=== PATIENT | female | born 1975 ===

== ENCOUNTER 2025-02-05 11:23 | Outpatient (AMB) | payer MEDICARE, SELFPAY ==
--- NOTE | 2025-02-05 11:40 | MHC.PC.OV ---
Vital Signs 02/05/25 12:07 Height 5 ft 4 in Weight 124 lb BMI 21.3 BP 100/70 Blood Pressure Location Lt brachial Position Sitting Pulse 81 Pulse Source Pulse Oximeter Temp 97.8 F Temp Source Temporal Artery Scan Pulse Oximetry (%) 96 Oxygen Delivery Method Room Air Intake Visit Reasons: est care Intake Note: Rosy presents in the office today to establish care. Allergies milk Allergy (Mild, Verified 02/05/25 12:01) Mucus bee pollen (bees) Allergy (Verified 02/05/25 12:01) Swelling corn Allergy (Verified 02/05/25 12:01) Hives house dust Allergy (Verified 02/05/25 12:01) Hives mold Allergy (Verified 02/05/25 12:01) Hives potato Allergy (Verified 02/05/25 12:01) Hives ragweed pollen Allergy (Verified 02/05/25 12:01) Hives Tobacco use date assessed: 02/05/25 Dental Screening Dental Screen Date: 02/05/25 Did you have a dental visit in the last 12 months?: No Did you have a dental problem in the last 6 months where you did not have access to dental care?: No Was dental information given to patient?: Patient declined HPI HPI Comments History of Present Illness Details This is a 49-year-old female with a past medical history of cognitive impairment and 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 She is due for a physical. Records transfer pending. She is accompanied by her mother who provides the medical history today. She previously was followed by Dr. Tristan and then Dr. sandoval from [facility]. 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 There are additional family members with the same chromosomal abnormality which led to the testing. She has the paperwork at home, and she will obtain a copy for us. She has suffered from seizures since childhood. She is on Depakote. Last seizure was 6 years ago. They do not have a neurologist currently. They report Depakote level was checked at urgent care recently when she need a refill on the medication. She suffers from low muscle tone and chronic neck pain related to cervical spinal a cathie. She sees a specialized chiropractor in [place], Dr. Greenbegr, who does computerized adjustments. She wears knee braces. 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 They have assistive walking devices including a walker and wheelchair. They also have safe guards for bathing including a bench and hand rails. She has chronic venous insufficiency. She is followed by Dr. Waldron at [facility]. She uses compression stockings. Her last appointment was within the past year. She goes to [facility]. She sees an eye doctor regularly. She does not have a mixed animal veterinarian, and she is referred for exam today. They decline mammogram, colonoscopy and Cologuard. Her mother does not want to put her through this type of testing given her medical history and excitability. She reports that her ears are frequently itchy. Mother reports tetanus immunization is up-to-date. Declines other vaccinations. ROS: Constitutional: No unexplained weight loss, fever, chills, fatigue or night sweats. Eyes: No vision changes,double vision, eye pain, eye redness, eye discharge. Wears glasses. ENT: No hearing loss, sneezing, congestion, runny nose or sore throat. Respiratory: No shortness of breath, cough or sputum production. Cardiovascular: No chest pain, chest pressure or chest discomfort. No palpitations or pedal edema. Gastrointestinal: No anorexia, nausea, vomiting or diarrhea. No abdominal pain or blood in stool. Genitourinary: No dysuria, hematuria, urinary frequency. Neurologic: No headache, dizziness, syncope Musculoskeletal: See HPI Hematologic/Lymphatics: No bleeding or bruising. No painful lymph nodes. Skin: No rash Endocrine: No cold or heat intolerance. No polyuria or polydipsia. Psychiatric: No depression or anxiety. Physical exam: Constitutional: Alert, in no distress. Head: Normocephalic. Eyes: Pupils are equal, round and reactive to light. Extraocular muscles intact. Ear, Nose and Throat: Canals occluded by brown cerumen bilaterally.. Normal nasal mucosa. No nasal discharge. No oral lesions. Neck: Supple, Full range of motion. No lymphadenopathy. No palpable thyroid masses. Respiratory: Clear to auscultation. Cardiovascular: S1 S2 regular. No murmurs. Gastrointestinal: Abdomen soft, non-tender, non-distended. Normal bowel sounds. No palpable masses. Genitourinary: No costovertebral angle tenderness. Neurologic: Moves all extremities spontaneously. Sensation intact bilaterally. Skin: No rashes Musculoskeletal: She is wearing knee braces. Extremities: Warm and well perfused. No clubbing or cyanosis. No erythema. 2+ bilateral lower extremity edema. Psychiatric: Cooperative [facility] Medical History (Updated 02/06/25 @ 12:41 by ZAHEER Stark) Bilateral impacted cerumen Routine physical examination Chronic neck pain Low muscle tone Cognitive impairment Venous insufficiency Chromosomal abnormality syndrome Screening for cardiovascular condition Epilepsy Social History (Updated 02/05/25 @ 12:07 by Raegan Powell MA) Housing: House Alcohol intake: never Patient Tobacco Use Status: Never used Tobacco e-Cigarette/Vaping Use: Never Used Second Hand Smoke Exposure: No service: No Current occupational status: disabled Current occupational exposures/hazards: No Cognitive needs: No Hearing needs: No Vision needs: No Questionnaire PHQ-9 Over the last 2 weeks, how often have you been bothered by any of the following problems? 1. Little interest or pleasure in doing things: not at all 2. Feeling down, depressed, or hopeless: not at all 3. Trouble falling or staying asleep, or sleeping too much: not at all 4. Feeling tired or having little energy: several days 5. Poor appetite or overeating: not at all 6. Feeling bad about yourself - or that you are a failure or have let yourself or your family down: not at all 7. Trouble concentrating on things, such as reading the newspaper or watching television: not at all 8. Moving or speaking so slowly that other people could have noticed. Or the opposite - being so fidgety or restless that you have been moving around a lot more than usual: not at all 9. Thoughts that you would be better off or of hurting yourself in some way: not at all Total score: 1 Depression Screening Interpretation: Negative Depression Screening Done: Yes 77810 - PHQ-9 Billing: Yes Source: Developed by Drs. Mckinley Stover, Carlyn Reyna, José Funk and colleagues, with an educational trevor from [employer]. Thrive Questionnaire Date Thrive assessed: 02/05/25 I am a: Patient What is your living situation today?: I have a steady place to live Within the past 12 months, did the food you bought not last and you didn't have the money to get more?: Never true Within the past 12 months, did you worry whether your food would run out before you got money to buy more?: Never true Do you have trouble paying for medicines?: No Do you have trouble getting transportation to medical appointments?: No Do you have trouble paying your heating and electricity bill?: No Do you have trouble taking care of your child, family member or friend?: Yes Do you have trouble with day-to-day activities such as bathing, preparing meals, shopping, managing finances, etc.?: Yes Are you currently unemployed and looking for a job?: No Are you interested in more education?: No Please select the resources that you would like help with: Job search/training and None Currently or been in a relationship where the following occur: I choose not to answer THRIVE Score: 0 AUDIT C Alcohol Use Questionnaire (AUDIT-C) 1. How often do you have a drink containing alcohol?: Never 3. How often do you have six or more drinks on one occasion?: Never Total Score: 0 RUTHY-7 AMB Questionnaire RUTHY-7 Date RUTHY - 7 assessed: 02/05/25 Feeling nervous, anxious, or on edge: 1 = Several days Not being able to stop or control worryin = Not at all Worrying too much about different things: 0 = Not at all Trouble relaxin = Not at all Being so restless that it is hard to sit still: 0 = Not at all Becoming easily annoyed or irritable: 1 = Several days Feeling afraid as if something awful might happen: 0 = Not at all Total RUTHY-7 score (0-4 normal; 5-9 mild; 10-14 moderate; 15-21 severe): 2 Source: Developed by Drs. Mckinley Stover, Carlyn Reyna, José Funk and colleagues, with an educational trevor from [employer]. RUTHY-7 Assessment Billing RUHTY-7 Assessment Tool: RUTHY-7 Assessment 23446 Physical exam (Primary Care) Vital Signs: Last Vital Signs Temp 97.8 F 02/05/25 12:07 Pulse 81 02/05/25 12:07 BP 100/70 02/05/25 12:07 Pulse Ox 96 02/05/25 12:07 Oxygen Delivery Method Room Air 02/05/25 12:07 BMI result Body Mass Index 21.3 Tobacco/Smoking Status: Tobacco use Status Tobacco use date assessed 02/05/25 02/05/25 12:10 Patient Tobacco Use Status Never used Tobacco 02/05/25 12:10 e-Cigarette/Vaping Use Never Used 02/05/25 12:10 PHQ-9: PHQ-9 Score PHQ-9: Total score 1 02/05/25 12:16 Depression Screening Interpretation: Negative Thrive Assessment: Date of Thrive Assessment Date Thrive assessed 02/05/25 02/05/25 11:42 Currently or been in a relationship where the following occur: I choose not to answer Coding Level of Care Code New Pt Level 3 (47759) New Pt Prev Care 40-64y(60941) Diagnoses Routine physical examination Z00.00 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 G40.A09 Epilepsy type: absence syndrome Intractability: not intractable Status epilepticus: without status epilepticus Venous insufficiency I87.2 Chronic neck pain M54.2; G89.29 Bilateral impacted cerumen H61.23 Additional Codes RUTHY-7 Assessment Billing - RUTHY-7 Assessment Tool: RUTHY-7 Assessment 15381 ([id number]) PHQ-9 - 81750 - PHQ-9 Billing: Yes ([id number]) Assessment & Plan Assessment & Plan (1) Routine physical examination: Code(s): Z00.00 - Encounter for general adult medical examination without abnormal findings Category: Medical Plan: Patient is seen today for a routine physical. As part of this visit we reviewed the following issues, which are considered and essential part of preventative health in this age group: - Breast Cancer screening - Annual Mixer Lever Operator exam - Screening for colon cancer - Blood pressure screening - Cholesterol screening - Osteoporosis prevention including calcium/vitamin D intake, weight bearing exercise & smoking cessation - Nutritional and exercise counseling - Counseling of injury prevention including fire prevention, smoke alarms and seat belt usage - Screening for depression - Education about skin cancer - Recommendations about immunizations - Recommendation of an eye exam (2) Chromosomal abnormality syndrome: Code(s): Q99.9 - Chromosomal abnormality, unspecified Category: Medical Plan: Her mother will provide supporting paperwork and diagnostics to the office. Records transfer pending. She will sign a release. (3) Epilepsy: Code(s): G40.909 - Epilepsy, unspecified, not intractable, without status epilepticus Category: Medical Qualifiers: Epilepsy type: absence syndrome Intractability: not intractable Status epilepticus: without status epilepticus Qualified Code(s): G40.A09 - Absence epileptic syndrome, not intractable, without status epilepticus Plan: Referred to neurology for continued management. I will provide refills on Depakote until she is established with Neurology. (4) Venous insufficiency: Code(s): I87.2 - Venous insufficiency (chronic) (peripheral) Category: Medical Plan: Followed by vascular surgery. Continue to use compression stockings and elevate the lower extremities. (5) Chronic neck pain: Code(s): M54.2 - Cervicalgia; G89.29 - Other chronic pain Category: Medical Plan: Patient has regular chiropractic treatments. (6) Bilateral impacted cerumen: Code(s): H61.23 - Impacted cerumen, bilateral Category: Medical Plan: Prescribed Debrox drops. Schedule nurse visit for cerumen removal. Plan Follow up in 6 months. 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 5 drps otic (ears) Q12H 15 mL 0RF 4 days divalproex (Depakote) 1.5 tablets BID 187.5 mg (1.5 x 125 mg) PO BID 270 tabs 3RF 90 days
[2025-02-05 12:07] VITALS: BP 100/70; PULSE 81; TEMP 36.6; O2SAT 96; BMI 21.3
== END 2025-02-05 12:59 | disposition home or self-care (01) ==
LOC: HO.HMCFM 11:24
PROVIDERS: PCP Physician Assistant Medical; Visit Provider Physician Assistant Medical
DX: Z00.00 Encounter for general adult medical examination without abnormal findings (principal); Q99.9 Chromosomal abnormality, unspecified; G40.A09 Absence epileptic syndrome, not intractable, without status epilepticus; I87.2 Venous insufficiency (chronic) (peripheral); M54.2 Cervicalgia; G89.29 Other chronic pain; H61.23 Impacted cerumen, bilateral

== ENCOUNTER → 2025-02-05 11:23 | Outpatient (BNVA) | payer MEDICARE, SELFPAY | PROVIDERS: PCP Physician Assistant Medical; Visit Provider Physician Assistant Medical | DX: Z00.00 Encounter for general adult medical examination without abnormal findings (principal); G40.A09 Absence epileptic syndrome, not intractable, without status epilepticus; I87.2 Venous insufficiency (chronic) (peripheral); M54.2 Cervicalgia; G89.29 Other chronic pain; H61.23 Impacted cerumen, bilateral; Q99.9 Chromosomal abnormality, unspecified; Z13.31 Encounter for screening for depression; Z13.39 Encounter for screening examination for other mental health and behavioral disorders | CPT/HCPCS: 96127; 99202; 99386 ==

== ENCOUNTER 2025-02-13 10:12 | Outpatient (REF) | payer MEDICARE, SELFPAY ==
--- OUTSIDE RECORDS SUMMARY | 2025-02-13 11:17 | XMS_ITS ---
Author Name [facility] Organization Unknown Encounters Encounter Type Encounter Reason Primary Diagnosis Location Date Ambulatory [facility] 08/21 Care Team Organization Name Specialty Phone Email Start Date End Da te [facility] 08/21/2022 0 08/21/2022
[2025-02-13 11:22] LABS: MANUAL DIFF FLAG NO
[2025-02-13 11:35] LABS: Hematocrit 41.2 % (37.0-47.0); Hemoglobin 13.8 g/dl (12.0-16.0); Imm Gran Abs Auto 0.01 X10*3/uL (0.00-0.03); Imm Gran Pct Auto 0.2 % (0.0-0.4); Lymphocytes Absolute Auto 2.3 X10*3/uL (1.2-4.9); Mean Corpuscular HGB Conc 33.5 g/dl (31.0-35.0); Mean Corpuscular Hemoglobin 28.8 pg (27.0-33.0); Mean Corpuscular Volume 85.8 fL (80.0-98.0); NRBC Abs Auto 0.000 X10*3/uL (0.0-0.012); NRBC Pct Auto 0.0 /100WBC (0.0-0.2); Platelet Count 275 X10*3/uL (160-400); Red Blood Count 4.80 X10*6/uL (4.20-5.50); White Blood Count 5.0 X10*3/uL (4.8-10.8)
[2025-02-13 12:17] LABS: Alanine Aminotransferase 21 U/L (0-31); Albumin Level 4.1 g/dL (3.5-5.0); Alkaline Phosphatase 49 U/L (39-117); Anion Gap 12 (12-20); Aspartate Amino Transferase 28 U/L (5-31); Blood Urea Nitrogen 14 mg/dL (9-16); Calcium 8.9 mg/dL (8.4-10.2); Carbon Dioxide 26 mmol/L (22-29); Chloride 105 mmol/L (96-108); Cholesterol 196 mg/dL (<200); Estimated Glomerular Filt Rate > 60; HDL Cholesterol 64 mg/dL (>40); Magnesium 2.1 mg/dL (1.6-2.6); Potassium 4.0 mmol/L (3.3-5.1); Sodium 139 mmol/L (135-145); Total Protein 6.6 g/dL (6.5-8.0); Triglycerides 53 mg/dL (<150)
== END 2025-02-13 10:13 | disposition home or self-care (01) ==
LOC: HO.WFDLDS 10:12
PROVIDERS: Visit Provider Physician Assistant Medical
DX: Z13.6 Encounter for screening for cardiovascular disorders (principal); G40.909 Epilepsy, unspecified, not intractable, without status epilepticus; Q79.60 Ehlers-Danlos syndrome, unspecified
CPT/HCPCS: 36415; 80053; 80061; 83735; 84443; 85025